=== PATIENT | female | born 1940 | race Caucasian/White ===

== ENCOUNTER 2016-07-12 13:01 | Outpatient (CLI) | payer OTHER ==
--- NOTE | 2016-07-12 13:40 | DIAGNOSTIC IMAGING REPORT ---
PROCEDURE: MG BILATERAL SCREENING W/CAD INDICATION: Screening. Family history breast carcinoma (granddaughter). TECHNIQUE: Bilateral CC and MLO digital views. COMPARISON: Compared to 07/09/2015, 07/08/2014, and 07/02/2013. FINDINGS: Computer-aided detection applied. Moderately dense with a few dystrophic calcifications. No change. IMPRESSION: 1. Negative mammogram. RESULT CODE: 1- Negative. A. A negative report should not delay biopsy if a dominant or clinically suspicious mass is present. 10-15% of cancers are not identified by x-ray. B. A negative report may reinforce clinical impression. C. Adenosis and dense breasts may obscure an underlying neoplasm. D. False positive reports average 6-10%. E.. A yearly screening mammogram is recommended. A reminder letter will be scheduled.
== END 2016-07-12 23:00 ==
LOC: MAM SRH 13:01
DX: Z12.31 Encounter for screening mammogram for malignant neoplasm of breast (principal)